=== PATIENT | female | born 1950 | race Caucasian/White ===

== ENCOUNTER 2016-11-21 09:11 | Day surgery (SDC) | payer MEDICARE, OTHER ==
[~2016-11-21] VITALS: Ht 157.5 cm; Wt 102.9 kg
[2016-11-21 10:16] VITALS: Ht 157.5 cm; Wt 102.9 kg
[2016-11-21] MEDS ORDERED: MIDAZOLAM 1 MG/ML 2 ML INJ ONE (10:21)
[2016-11-21] MEDS ORDERED: PROPOFOL 20 ML ONE (10:21)
[2016-11-21] MEDS ORDERED: FENTAnyl 50 MCG/ML VIAL ONE (10:21)
[2016-11-21 10:26] VITALS: BP 163/71; PULSE 77; RESP 20
[2016-11-21] MEDS ORDERED: ASPI-535 PO (10:30)
[2016-11-21] MEDS ORDERED: LOSARTAN PO (10:30)
[2016-11-21] MEDS ORDERED: HCTZ PO (10:30)
[2016-11-21] MEDS ORDERED: ATORVASTATIN PO (10:30)
[2016-11-21] MEDS ORDERED: METFORMIN PO (10:30)
[2016-11-21] MEDS ORDERED: TRADJENTA PO (10:30)
[2016-11-21 11:30] VITALS: BP 142/58; PULSE 58; RESP 16
--- NOTE | 2016-11-21 18:01 | GILP ---
DATE OF PROCEDURE: 11/21/2016 NAME OF PROCEDURES: Colonoscopy and biopsy. SURGEON: Karen Gibson MD PREOPERATIVE DIAGNOSIS: Screening colonoscopy. POSTOPERATIVE DIAGNOSES 1. Colonoscopy all the way to the cecum. 2. Small right colon polyp was removed using the biopsy forceps. 3. Internal hemorrhoids. INDICATION FOR THE PROCEDURE: Ms. Marcia Muller is a 66-year-old female patient who was s cheduled for screening colonoscopy. The procedure and possible complications were well explained to the patient, she understood and cons ented to the procedure. DESCRIPTION OF PROCEDURE: Under the influence of anesthesia, the colonoscope was carefully introduc ed in the rectum and under direct vision, it was advanced all the way to the cecum. FINDINGS: The patient had a small right colon polyp and it was removed using the biopsy forceps. S he was noted to have internal hemorrhoids. She tolerated the procedure very well and there was no complication from the procedure. At the end of the procedure, she was awake with stable vital signs and she was discharged home to the care of h er family. IMPRESSION: 1. Colonoscopy all the way to the cecum. 2. Small right colon polyp was removed using the biopsy forceps. 3. Internal hemorrhoids. PLAN: Next screening colonoscopy in 10 years. Dictated By: KAREN LOUIS/YADIRA Conf#: [id number] DID#: [id number]
== END 2016-11-21 11:22 | disposition home or self-care (01) ==
LOC: GIL 09:11
PROVIDERS: ATTEND Internal Medicine Gastroenterology
DX: Z12.11 Encounter for screening for malignant neoplasm of colon (principal); K63.5 Polyp of colon; K64.8 Other hemorrhoids; E11.9 Type 2 diabetes mellitus without complications; E78.5 Hyperlipidemia, unspecified; E66.9 Obesity, unspecified; Z68.41 Body mass index [BMI] 40.0-44.9, adult; I10 Essential (primary) hypertension
CPT/HCPCS: 45380; 82962; 88305; J2250; J3010